=== PATIENT | female | born 1940 | race Caucasian/White ===

== ENCOUNTER → 2025-01-15 12:39 | Outpatient (REF) | payer MEDICARE, OTHER, SELFPAY | LOC: RCS 12:39 | PROVIDERS: ATTENDING PHYSICIAN Internal Medicine | DX: R06.09 Other forms of dyspnea (principal) | CPT/HCPCS: 93005; 93017; 93350 ==

== ENCOUNTER → 2025-02-05 11:08 | Outpatient (REF) | payer MEDICARE, OTHER, SELFPAY | LOC: RAD 11:08 | PROVIDERS: ATTENDING PHYSICIAN Internal Medicine | DX: R09.89 Other specified symptoms and signs involving the circulatory and respiratory systems (principal) | CPT/HCPCS: 93880 ==

== ENCOUNTER → 2025-02-19 07:43 | Outpatient (REF) | payer MEDICARE, OTHER, SELFPAY ==
[2025-02-19 10:27] LABS: Hematocrit 40.4 % (37.0-47.0); Hemoglobin 13.2 g/dL (12.0-16.0); Mean Corp Hgb Conc. 32.7 g/dL (33.0-37.0); Mean Corpuscular Volume 86.1 fL (81.0-99.0); Nucleated Red Blood Cells % 0 %; Platelet Count 216 10^3/uL (130-400); Red Cell Dist. Width 12.9 % (11.5-14.5)
[2025-02-19 10:29] LABS: Urine Character Clear (Clear)
[2025-02-19 10:37] LABS: ALT (SGPT) 111 U/L (0-35); AST (SGOT) 50 U/L (14-36); Albumin 3.9 g/dl (3.5-5.0); Alkaline Phosphatase 72 U/L (38-126); Blood Urea Nitrogen 17 mg/dl (7-17); Calcium 9.3 mg/dl (8.4-10.2); Carbon Dioxide 30 mmol/L (22-30); Chloride 107 mmol/L (98-107); Glucose 95 mg/dl (70-99); HDL Cholesterol 62 mg/dl; LDL Cholesterol, Calculated 122 mg/dl; Potassium 4.4 mmol/L (3.5-5.1); Sodium 141 mmol/L (135-145); Total Protein 6.5 g/dl (6.3-8.2); Very Low Density Lipoprotein 20 mg/dl (0-30); eGFR 49.86
[2025-02-19 10:39] LABS: Urine Squamous Cell >30 /LPF (Few)
[2025-02-19 11:03] LABS: TSH 0.65 uIU/ml (0.47-4.68)
[2025-02-22 08:55] LABS: Aldosterone/Renin Activ Ratio 34.9 ratio (<=25.0); Renin Activity Results 0.2 ng/mL/hr
== END ==
LOC: HWLAB 07:43
PROVIDERS: ATTENDING PHYSICIAN Internal Medicine
DX: I10 Essential (primary) hypertension (principal); M81.0 Age-related osteoporosis without current pathological fracture
CPT/HCPCS: 36415; 80053; 80061; 81003; 81015; 82088; 84244; 84443; 85025

== ENCOUNTER 2025-03-19 09:55 | Emergency (ER) | payer MEDICARE, OTHER, SELFPAY ==
[2025-03-19 10:11] VITALS: BP 159/64
[2025-03-19 11:20] VITALS: BMI 21.7
--- NOTE | 2025-03-19 11:22 | EDRN ---
Received patient on stretcher. Patient stated that she tripped and fell 2 nights ago while walking her dogs. patient stated that she fell onto her knees then hit her face on the ground. No LOC. Denies headache,dizziness,neck and back pain. Patient
stated that she is able to walk without difficulty.
--- NOTE | 2025-03-19 11:49 | ED.GENMED ---
History of Present Illness
General
Chief Complaint: Fall
Source: patient
Exam Limitations: none
Time Seen by Provider: 03/19/25 11:05
Nursing documentation reviewed up to this point in time: agreed with
History of Present Illness
History of Present Illness:
The patient is a very pleasant 84-year-old female who was walking her dogs yesterday. Patient reports that somehow her shoe got caught on the gravel in the street and caused her to fall down. Patient reports that she fell onto her knees, her
hands, and hit her face in the street. There is no loss consciousness. Patient was able to get up right away. She denies dizziness, vision changes, nausea, vomiting, headache, or any other concerns. Patient reports soreness of the bridge of the
nose. Patient reports she initially had a nosebleed on the left side but this has stopped. Patient reports the fall occurred more than a day and a half ago, this past Saturday. Patient reports that when she told her doctor about it, they
encouraged that she come to the ED to get checked. Patient does not remember when her last tetanus shot was. Patient has abrasions of her nose area and upper lip. Patient has swelling of her mid upper lip. Patient denies any loose teeth. She
denies neck pain and back pain. She denies chest pain. She has had no difficulty walking. Patient has mild soreness of both of her knees and her right hand.
Past History
Past History
ED Past Medical History: HTN and Psychiatric (Depression)
ED Past Surgical History: Orthopedic
Social History
Tobacco: Former smoker
Alcohol: Other
Drug: None
Personal: Other
Living: other
Employment: Other
Family History
Family History: Other
Review of Systems
Review of Systems
Allergies reviewed?: Yes
All Other Systems: ROS reviewed and negative except as documented in HPI and ROS
Constitutional: Reports no symptoms
EENT: Reports no symptoms
Respiratory: Reports no symptoms
Cardiac: Reports no symptoms
ABD/GI: Reports no symptoms
: Reports no symptoms
Musculoskeletal: Reports joint pain
Skin: Reports other (Facial abrasions)
Neurological: Reports no symptoms
Endocrine: Reports no symptoms
Hematologic/Lymphatic: Reports no symptoms
Psychiatric: Reports no symptoms
Phy Exam
Physical Exam
Physical Exam:
Physical Exam
General: no apparent distress, not acutely ill, smiling, conversational
Neck: supple. Nontender, mild swelling mid upper lip. No inner mouth lacerations. No loose teeth
Heart: s1/s2 regular rate and rhythm, no murmur. equal radial pulses. No chest wall tenderness
Lungs: no acute respiratory distress. clear bilaterally. No vertebral spine tenderness
Abdomen: normal bowel sounds. not tender. no CVAT
Neuro: alert and oriented. no focal neurological deficits. Extraocular muscles intact. Steady gait. 5 out of 5 strength in all extremities without drift.
Skin: Abrasions that are scabbed over on bridge of nose, tip of nose and nasolabial fold
Psychiatric: well kept. interactive and cooperative
Extremities: Abrasions bilateral dorsal hands. Abrasion right patellar knee area. No bony tenderness of upper or lower extremities including hands and knees bilaterally. Nontender pelvis and hips.
Course
Orders/Labs/Results
Orders:
Orders
03/19/25 11:39
Nasal Bones, complete 3 Views [CR Nasal Bones Comp Min 3 View] Urgent
Comment:
Reason For Exam: fall on nose
03/19/25 13:06
Tetanus/Diphth/Acelpertussis [Adacel] 0.5 ml IM .ONCE ONE
Vital Signs
Initial and Last Documented VS:
Initial Vital Signs
Temp Pulse Resp BP Pulse Ox
98.2 F 72 18 159/64 98
03/19/25 10:11 03/19/25 10:11 03/19/25 10:11 03/19/25 10:11 03/19/25 10:11
Last Documented Vital Signs
Temp Pulse Resp BP Pulse Ox
98.2 F 72 18 159/64 98
03/19/25 10:11 03/19/25 10:11 03/19/25 10:11 03/19/25 10:11 03/19/25 11:49
MDM/Problems Addressed
Differential Diagnosis Includes:
Bilateral patella contusions, patellar fractures, nasal bone fracture
MDM/Problems Addressed:
Patient presents with mild swelling of upper lip, bilateral hands, bilateral knees, and nose after a fall from 2 days ago
Chronic conditions affecting care: HTN
Acute Exacerbation and/or Progression of Chronic Illness:
Patient is acutely hypertensive, however, there is no sign of CHF or neurological impairment
*Radiology
Radiology exam reviewed: preliminary read by ED provider (Nasal bone fracture reviewed by me. No fracture seen) and radiology read reviewed
*Pulse Oximetry
SaO2: 98
Oxygen Mode of Delivery: Room air
Patient hypoxic: no
*EKG
Interpreted by ED Provider?: NA
*Steward/Stewardess Interpretation
Rate: Steward/Stewardess- N/A
*Critical Care Note
Total Time (30-74mins, 75-104mins- exclusive of procedures): Not Applicable
Data Reviewed
Source: patient
Further Testing Considered But Not Given:
I considered doing a CT head, however, patient has had no dizziness, headache, nausea, vomiting or vision changes and the injury was over 36 hours ago. Therefore, it is unlikely she has an intracranial hemorrhage or hematoma. Additionally, I did
consider doing a CT of the face, however, patient's swelling and bruising are just limited to the bridge of the nose and tip of the nose and do not infect the bony orbits or other parts of the face.
ED Attending Note
-
Portions of this chart may have been created with voice recognition software.� Occasional wrong word or��sound alike� substitutions may have occurred due to the inherent limitations of voice recognition software.
Discharge Plan
Departure
Patient Disposition: Home (Routine Discharge)
Date of Disposition: 03/19/25
Time of Disposition: 13:04
Patient with high blood pressure during this ER visit?: Yes
Condition: Good
Covid-19: Not Applicable
Discharge Problem:
Nasal contusion
Instructions: BLOOD PRESSURE, Contusion
Prescriptions:
No Action
bupropion HCl 150 MG tablet sustained-release 12 hr
150 mg PO DAILY
paroxetine HCl 10 MG tablet
10 mg PO DAILY
calcium carbonate [Oyster Shell Calcium 500] 500 MG tablet
500 mg PO DAILY
aspirin 81 MG tablet,chewable
81 mg PO HS
ramipril 5 MG capsule
5 mg PO HS
magnesium 200 MG tablet
200 mg PO DAILY
polyvinyl alcohol-povidone(PF) [Refresh Classic (PF)] 10 DROPS dropperette
1 drops BOTH EYES QIDPRN PRN (Reason: dry eye)
cholecalciferol (vitamin D3) 1,000 UNITS tablet
1,000 units PO DAILY
omega 8-[id number]-vwj-fish oil [Fish Oil] 1 EACH capsule
1 ea PO DAILY
C,E,copper,zinc [id number] 1 CAP capsule
1 cap PO DAILY
prednisone 20 MG tablet
20 mg PO BID Qty: 14 0RF
Referrals:
Larry Farris DO [Family Provider, Internal Medicine]
Activity Restrictions/Additional Instructions:
Continue to apply cool compress to the bridge of your nose multiple times a day to help control pain and swelling. Take 400 mg of ibuprofen every 6-8 hours with food for pain. Additionally, you could also take 650 mg of Tylenol every 4-6 hours for
pain. Return with any severe headache, vision changes, nausea, vomiting or dizziness
Interventions
Interventions:
*Risk Screen - Suicide Last Done: 03/19/25 10:11
*General Assessment Last Done: 03/19/25 11:20
*Neglect/Abuse Screening Last Done: 03/19/25 10:11
*ED- Fall Risk Assessment Last Done: 03/19/25 11:20
*ED COVID-19 Vaccine History Last Done: 03/19/25 11:20
*ED Influenza Vaccine History Last Done: 03/19/25 11:20
ED-Musculoskeletal Assessment Last Done: 03/19/25 11:20
ED- Neurological Assessment Last Done: 03/19/25 11:20
ED-Skin Assessment Last Done: 03/19/25 11:20
Discharge Date and Time
Print Language: MOROCCAN
[2025-03-19] MEDS: ADACEL 0.5 ML IM (13:12)
--- NOTE | 2025-03-19 13:25 | EDRN ---
Reviewed discharge instructions with patient. Verbalized understanding. Ambulated with steady gait to the lobby.
[2025-03-19 13:26] VITALS: BP 154/59
== END 2025-03-19 13:27 | disposition home or self-care (01) ==
LOC: EMR 09:55
PROVIDERS: EMERGENCY PHYSICIAN Emergency Medicine; FAMILY PHYSICIAN Internal Medicine
DX: S00.33XA Contusion of nose, initial encounter (principal); W18.39XA Other fall on same level, initial encounter; Y93.K1 Activity, walking an animal; I10 Essential (primary) hypertension; F32.A Depression, unspecified; Z23 Encounter for immunization; Z87.891 Personal history of nicotine dependence
CPT/HCPCS: 99283; 90471; 70160; 90715